=== PATIENT | female | born 1980 | race Two or more races ===

== ENCOUNTER 2018-12-21 14:17 | Outpatient (CLI) | payer OTHER ==
--- NOTE | 2018-12-21 16:33 | Mammography Report ---
Reason: RT BREAST LUMP Procedure Date: 12/21/2018 Accession Number: [id number] / [id number] Procedure: ELYSE - Diagnostic Dig Bilat CPT Code: FULL RESULT: EXAM: Diagnostic Dig Bilat; Targeted Right Breast Ultrasound. DATE: 12/21/2018 3:13 PM CLINICAL HISTORY: Palpable right breast mass. TECHNIQUE: (B) - Bilateral CC, MLO and true lateral views were obtained. In addition, bilateral 3-D mammography and right breast targeted ultrasound were also performed. COMPARISON: None PARENCHYMAL PATTERN: (D) - The breasts demonstrate heterogeneously dense fibroglandular parenchyma bilaterally. FINDINGS: There is a mostly well-circumscribed mass in the central lateral hemisphere right breast seen on both 2-D and 3-D mammography, middle one third. No pleomorphic microcalcifications. Targeted right breast ultrasound was performed. The palpable and mammographic abnormality is a wider than tall hypoechoic mass measuring 22 x 17 x 10 mm diameter with no abnormal vascularity. There are 3-4 smaller cysts also in the lateral hemisphere of no clinical significance. The findings were discussed with the patient. IMPRESSION: Suspicious findings. BI-RADS category 4. RECOMMENDATION: (BIOPSY) - Ultrasound-guided core needle biopsy right breast recommended. BI-RADS CATEGORY: (4) - Suspicious. STANDARD QUALIFYING STATEMENTS: 1. This examination was not reviewed with the aid of Computer-Aided Detection (CAD). 2. A negative or benign imaging report should not preclude biopsy if clinically suspicious findings are present. 3. Dense breasts may obscure an underlying neoplasm. 4. This examination was reviewed with the aid of 3D breast imaging (tomosynthesis).
== END 2018-12-21 14:18 | disposition home or self-care (01) ==
LOC: DI 14:17
PROVIDERS: ATTEND Nurse Practitioner Adult Health
DX: N63.10 Unspecified lump in the right breast, unspecified quadrant (principal); N63.20 Unspecified lump in the left breast, unspecified quadrant; N60.11 Diffuse cystic mastopathy of right breast
CPT/HCPCS: 76642; 77066

== ENCOUNTER 2019-01-03 09:23 | Outpatient (CLI) | payer OTHER ==
[2019-01-03] MEDS ORDERED: BUFFERED LIDOCAINE 10 ML SYRINGE ONE (09:51)
[2019-01-03] MEDS ORDERED: BUPIVACAINE 0.5%-EPI 1:200000 PF 10 ML VIAL ONE (09:52)
--- NOTE | 2019-01-03 12:17 | Mammography Report ---
Reason: ABN MAMMO - RT BREAST MASS Procedure Date: 01/03/2019 Accession Number: [id number] / [id number] Procedure: ELYSE - Diagnostic Dig RT CPT Code: FULL RESULT: EXAM: Biopsy Breast Core Ultrasound Right, Diagnostic Dig RT DATE: 01/03/2019 10:55 AM COMPARISON: Mammogram and ultrasound 12/21/2018 PROCEDURE: Ultrasound-guided needle biopsy palpable right breast mass. CLINICAL DATA: Targeted mass measuring 2.2 x 1.7 x 1.0 cm with indistinct margins in the 9 o'clock axis of the right breast 4 cm from the nipple. Informed consent was obtained. Using standard aseptic technique, both 1% buffered lidocaine and Sensorcaine were injected into the right breast for local anesthesia. A small florencio was made in the skin with a #11 blade. A 14-gauge achieve biopsy needle was used to obtain 5 specimens. A specialized biopsy marker clip was placed into the biopsy cavity under ultrasound guidance. The patient was taken to separate mammography machine and a two-view digital mammography was performed to verify the clip placement and any complications. The mammography showed appropriate clip placement.. The wound was dressed and ice applied. The patient was observed for approximately 15 minutes, then was discharged from diagnostic imaging Department in good condition following instructions on wound care and obtaining biopsy results. The patient is scheduled to receive the biopsy results from the referring physician. The tissue was sent for histologic analysis. IMPRESSION: Ultrasound-guided biopsy of the right breast. AN ADDENDUM WILL BE MADE TO THIS REPORT WHEN PATHOLOGY IS REVIEWED TO ESTABLISH CONCORDANCE.
[2019-01-03] MEDS ORDERED: BUFFERED LIDOCAINE 10 ML SYRINGE IU ONE (12:56)
[2019-01-03] MEDS ORDERED: BUPIVACAINE 0.5%-EPI 1:200000 PF 10 ML VIAL SUBQ ONE (12:56)
== END 2019-01-03 09:24 | disposition home or self-care (01) ==
LOC: DI 09:23
PROVIDERS: ATTEND Nurse Practitioner Adult Health
DX: D24.1 Benign neoplasm of right breast (principal)
CPT/HCPCS: 19083

== ENCOUNTER 2023-02-14 15:40 | Outpatient (CLI) | payer OTHER ==
--- NOTE | 2023-02-15 12:08 | Mammography Report ---
BILATERAL DIGITAL SCREENING MAMMOGRAM 3D/2D: 02/14/2023 CLINICAL: Routine screening. Comparison is made to exams dated: 12/21/2018 mammogram, 01/03/2019 mammogram, and 01/03/2019 ultrasound biopsy - [facility]. Both breasts are heterogeneously dense, which may obscure small masses (category c / 51-75% glandular tissue). There is a biopsy clip in the right breast. No significant masses, calcifications, or other findings are seen in either breast. There has been no significant interval change. IMPRESSION: NEGATIVE There is no mammographic evidence of malignancy. A 1 year screening mammogram is recommended. Based on the Tyrer Cuzick model (a risk assessment model) the patients lifetime risk is 14.4% and he r 10 year risk is 1.8%. According to the ACR, ACS, and NCCN guidelines, an annual breast MRI exam fozia ng with mammogram is recommended if the patients lifetime risk is 20% or greater. This exam was interpreted at Station ID: [id number]. NOTE: For mammograms, a report in lay terms will be sent to the patient. Approximately 15% of breast malignancies will not be visualized mammographically. In the management of a palpable breast mass, a negative mammogram must not discourage biopsy of a clinically suspicious lesion. Electronically Signed By: Alfa Baez M.D. [facility] [place]:02/15/2023 08:09:48 ACR BI-RADS Category 1: Negative 3341F PARENCHYMAL PATTERN: (D) - The breast(s) demonstrate(s) heterogeneously dense fibroglandular aleksandra diaz. BI-RADS CATEGORY: (1) - 1 Mammogram [id number] 1 year screening LATERALITY: (B)
== END 2023-02-14 15:41 | disposition home or self-care (01) ==
LOC: DI.N 15:40
PROVIDERS: ATTEND Family Medicine
DX: Z12.31 Encounter for screening mammogram for malignant neoplasm of breast (principal)